=== PATIENT | female | born 1945 | race Caucasian/White ===

== ENCOUNTER 2024-10-26 15:14 | Outpatient (CLI) | payer MEDICARE, SELFPAY ==
--- NOTE | ~2024-10-26 | MM_ITS ---
EXAMINATION: MM screening ever BI w kristian HISTORY: Screening TECHNIQUE: Craniocaudal and mediolateral oblique 3-D tomosynthesis images were obtained and synthetic 2-D images were generated. CAD analysis was submitted and interpreted. COMPARISON: No prior mammogram is available for comparison at this institution. BREAST PARENCHYMAL COMPOSITION: Not dense: There are scattered areas of fibroglandular density. FINDINGS: There are lumpectomy changes in the upper central aspect of the right breast. There is no e vidence of suspicious mass, calcification, or architectural distortion to suggest malignancy in eithe r breast. There has been no suspicious interval change. IMPRESSION: 1. No mammographic evidence of malignancy. 2. Recommend routine screening mammography in one year. BI-RADS Category 1: Negative Reviewed, dictated and finalized at location B. ACLS
== END 2024-10-26 15:15 | disposition home or self-care (01) ==
LOC: ANHIMG 15:16
PROVIDERS: PCP Nurse Practitioner Family; Visit Provider Nurse Practitioner Family
DX: Z12.31 Encounter for screening mammogram for malignant neoplasm of breast (principal)
CPT/HCPCS: 77063; 77067

== ENCOUNTER 2025-04-04 09:58 | Outpatient (CLI) | payer MEDICARE, SELFPAY ==
--- NOTE | ~2025-04-04 | DEXA_ITS ---
Bone Density Report Name: DAVID SALAS Age: 79 Sex: Female Ethnicity: White Date of : 1945 Indication: postmenopausal; screening for osteoporosis; height loss; prior fracture; cancer; Referring Provider: DANNA NASH Study: Bone densitometry was performed. Exam Date: April 04, 2025 Accession number: [id number] Bone Density: Region BMD T-score Z-score Classification AP Spine(L1-L4) 0.724 -2.9 -0.2 Osteoporosis Femoral Neck (Left) 0.615 -2.1 0.3 Osteopenia Total Hip (Left) 0.727 -1.8 0.4 Osteopenia Femoral Neck (Right) 0.667 -1.6 0.7 Osteopenia Total Hip (Right) 0.739 -1.7 0.5 Osteopenia Total Hip Mean 0.733 -1.8 0.5 Osteopenia World Health Organization criteria for BMD impression classify patients as: Normal (T-score at or above -1.0), Osteopenia (T-score between -1.0 and -2.5), or Osteoporosis (T-score at or below -2.5). 10-year Fracture Risk: FRAX not reported because: Some T-score for Spine Total or Hip Total or Femoral Neck at or below -2.5 Prior hip or vertebral fracture Treated for osteoporosis Clinical Information Provided by Patient: Have had a previous hip or vertebral fracture Has had a low trauma fracture Is being treated for osteoporosis Has used the following medications: Fosamax (i.e. alendronate), Vitamin D, Calcium Has the following medical conditions: Cancer Patient maximum height was 63 Menopause Age: 53 Drinks caffeinated beverages Onset of menses at age 11 Number of children 3 Impression: The patient has established osteoporosis, based on the Total Spine T-score and the existence of a prior fracture. The patient has risk factors, including: previous fracture. Discussion: It is important to ask patients whether they are taking their medications and to encourage continued and appropriate compliance with their osteoporosis therapies to reduce fracture risk. It is also important to review their risk factors and encourage appropriate calcium and vitamin D intakes, exercise, fall prevention and other lifestyle measures. Follow-Up: Consider a repeat BMD and Vertebral Fracture Assessment (VFA) exam in 2 years or sooner if medically necessary, to reassess this patient's status. Reported by: ROSAS on 04/04/2025 10:29:00 AM. Reviewed, dictated and finalized at location A.
== END 2025-04-04 09:59 | disposition home or self-care (01) ==
LOC: ANHIMG 09:58
PROVIDERS: PCP Nurse Practitioner Family; Visit Provider Nurse Practitioner Family
DX: M85.89 Other specified disorders of bone density and structure, multiple sites (principal); M81.0 Age-related osteoporosis without current pathological fracture; Z13.820 Encounter for screening for osteoporosis
CPT/HCPCS: 77080

== ENCOUNTER 2025-05-08 12:50 | Outpatient (CLI) | payer MEDICARE, SELFPAY ==
--- NOTE | ~2025-05-08 | US_ITS ---
Pelvic ultrasound. Clinical History: Postmenopausal bleeding Technique: Realtime transabdominal and transvaginal scanning of the pelvis was performed. Color flow Doppler and Doppler spectral analysis were performed. Findings: The uterus is anteverted. The endometrial stripe is somewhat poorly delineated, possibly m easuring up to 9 mm. No focal mass is identified. Neither ovary seen. No adnexal mass seen. There is no evidence of free fluid in the cul de sac. Impression: Somewhat poor delineation of endometrial stripe, which may be mildly thickened at 9 mm. Consider hyst eroscopy and/or pelvic MR to better assess the endometrium. Endometrial neoplasm not completely exclu ded. Reviewed, dictated and finalized at location M. Impression: Somewhat poor delineation of endometrial stripe, which may be mildly thickened at 9 mm. Consider hysteroscopy and/or pelvic MR to better assess the endometriu m. Endometrial neoplasm not completely excluded.
== END 2025-05-08 12:51 | disposition home or self-care (01) ==
LOC: MICIMG 12:52
PROVIDERS: PCP Nurse Practitioner Family; Visit Provider Nurse Practitioner Family
DX: N95.0 Postmenopausal bleeding (principal)
CPT/HCPCS: 76830; 76856

== ENCOUNTER 2025-06-04 01:57 | Day surgery (SDC) | payer MEDICARE, SELFPAY ==
[2025-05-20 14:30] VITALS: BMI 22.6
--- OUTSIDE RECORDS SUMMARY | 2025-06-04 01:59 | XMS_ITS | Continuity of Care Document ---
Author Organization [facility] Address [id number] [place] [id number] Phone Care Team Providers Care Cosmetology Teacher Name Role Phone Ivon GOODSON MD, Garfield Unavailable Unavailable Allergies, Adverse Reactions, Alerts Substance Reaction Status Criticality Penicillins Active No Information Medications Medication Instructions Dosage Effective Dates (start - stop) Status Comments Pred Forte 1 % Eye Drops one drop right eye two times per day - Active Acular LS 0.4 % Eye Drops one drop right eye two times per day - Active Refresh Plus 0.5 % Eye Dropperette one drop right eye four times per day - Active Multiple Vitamin Tab one tablet by mouth daily - Active Imitrex 50 mg Tab PRN - Active Ambien 5 mg Tab PRN - Active Paxil 30 mg Tab one tablet by mouth daily - Active VITAMIN C (unknown strength) one tablet by mouth daily Not Available - Active Fish Oil 340 mg-1,000 mg Cap one tablet by mouth daily - Active MICHELLE-LAC (unknown strength) one tablet by mouth daily Not Available - Active Fosamax 70 mg Tab - Active ALON ASPIRIN (unknown strength) one tablet by mouth daily Not Available - Active Procedures Procedure Date Ophth Serv: Med Exam; Comp Est 08 Ophth Biomet Part Cohernc Intr 08 No Charge Refraction Astigmatism Protocol Ophth Serv: Med Exam; Comp Est 08 Determ Refractive State Postop F/u Visit Incld Global 7 FACILITY FACILITY Discission 2nd Cataract; Laser 07 Ophth Serv: Med Exam; Comp Est 07 Determ Refractive State Ophth Serv: Med Exam; Comp Est 06 Offic/outpt E&m Estab Low-mod 6 Postop F/u Visit Incld Global 5 Offic Cons New/Estab Low Postop F/u Visit Incld Global 5 FACILITY Extracapsular Cataract Remov I 05 Surgery Pre-Payment Anes- Eye; Lens Surg No MD Ophth Biomet Part Cohernc Intr 05 Ophth Serv: Med Exam; Comp New Advance Directives Directive Yes / No Effective Date File Name Resuscitation Not Answered N/A N/A Life Support Not Answered N/A N/A Intubation Not Answered N/A N/A Antibiotics Not Answered N/A N/A IV Fluid Support Not Answered N/A N/A Tube Feed Not Answered N/A N/A Other Directive N/A N/A WARNING:The information contained in this section is historical and is provided for information only and does not constitute a legal document or any assurance that the information is still accurate. Please verify the information with the kohler of the legal document before using it for clinical purposes. Encounters Encounter Description Practice Location Reason(s) For Visit Diagnoses Date Provider Providers Copied on Encounter [facility], [address], [id number], tel:[phone] [facility] No Information 8 Ivon Merrill. [address], [id number], . tel:[phone] Referring Provider: [place], [address], [id number] . tel:[phone] [facility], [address], [id number], tel:[phone] [facility] No Information 8 Lyle Giraldo. [address], [address] [place] [address], . tel:[phone] Referring Provider: [place], [address] [facility], [place], [place], [address] [place] [address] . tel:[phone] [facility], [address] [facility], [place], [address] [place] [address], tel:[phone] [facility] No Information 7 Lyle Giraldo. [address] [facility], [place], [address] [place] [address], . tel:[phone] Referring Provider: Garfield Phillips, [address], [place], [address] [place] [address] . tel:[phone] [facility], [address], [place], [address] [place] [address], tel:[phone] [facility] No Information 7 Ivon Merrill. [address], [place], [address] [place] [address], . tel:[phone] Referring Provider: Garfield Phillips, [address], [place], [address] [place] [address] . tel:[phone] [facility], [address], [place], [address] [place] [address], tel:[phone] [facility] No Information 7 Ivon Merrill. [address], [place], [address] [place] [address], . tel:[phone] Referring Provider: Garfield Phillips, [address], [place], [address] [place] [address] . tel:[phone] [facility], [address], [place], [address] [place] [address], tel:[phone] [facility] No Information 7 Ivon Merrill. [address] [facility], [place], [address] [place] [address], . tel:[phone] Referring Provider: Garfield Phillips, [address] [facility], [place], [address] [place] [address] . tel:[phone] [facility], [address] [facility], [place], [address] [place] [address], tel:[phone] [facility] No Information [address] [place], [address] [place] [address], . tel:[phone] Referring Provider: Do Arndt, [address] [place] [address], [address] [place] [address] . tel:[phone] Offic/outpt E&m Estab Low-mod [facility], [address], [address] [place] [address], tel:[phone] [facility] No Information [address] [place] Do[address] [place] [address], [address] [place] [address], . tel:[phone] Referring Provider: Do Arndt, [id number] [place] [address], [address] [place] [address] . tel:[phone] [facility], [address], [address] [place] [address], tel:[phone] [facility] No Information [address] [place] [address] [place] [address], [address] [place] [address], . tel:[phone] Referring Provider: Do Arndt, [address] [place] [address], [address] [place] [address] . tel:[phone] Offic Cons New/Estab Low Prachi BELTRÁN, [address], [address], [place], [place], [id number], tel:[phone] Prachi BELTRÁN No Information Sep-1 3-[address] [facility], [address], [place], [place], [id number], tel:[phone] [facility] No Information Sep-0 6-[address] [facility], [address], [place], [place], [id number], tel:[phone] [facility] No Information Jun-3 [address] [facility], [address], [place], [place], [id number], tel:[phone] [facility] No Information Jun-3 [address] [facility], [address], [place], [place], [id number], tel:[phone] [facility] No Information Jun-3 0-[address] [facility], [address], [place], [place], [id number], tel:[phone] [facility] No Information Jun-3 0-200 5 Sukhjinder Carver. [address], [place], [facility], [place]. tel:[phone] [facility], [address], [place], [place], [id number], tel:[phone] [facility] No Information Jun-3 0-[address] [facility], [address] [facility] , [place], [place], [id number], tel:[phone] [facility] No Information Jun-1 2-200 5 No Information Family History Family Member Type Diagnosis Age At Onset Mother Problem (finding) Heart Disease Father Problem (finding) Heart Disease Maternal Grandparent Problem (finding) Cancer Paternal Grandparent Problem (finding) Emphysema/Strok e Sisters/Brothers Problem (finding) Cancer Payers Payer name Insurance type Covered republican ID Authoriza tion(s) No Information Social History Type Description Quantity Date Captured Comments Alcohol Use Details Unknown Caffeine Use Details Unknown Tobacco Use Status Smoking Status No Information Sex Female Chief Complaint And Reason For Visit No Information Reason For Referral Reason For Referral No Information History Of Present Illness Encounter Date Complaint History Of Prese nt Illness No Information Functional Status Date Functional Assessmen t No Information Instructions Date Instruction Additional Infor mation No Information Assessments Type Assessment Date No Information Patient Care Teams Name Effective Dates (start - stop) Status Members No Information
[2025-06-04 11:26] VITALS: BP 138/77; PULSE 100; RESP 18; TEMP 36.4; O2SAT 99; BMI 22.8
[2025-06-04] MEDS: LACTATED RINGERS 1,000 ML 150 ML IV CONT (11:38)
--- NOTE | 2025-06-04 11:46 | WPDANESEPPF ---
Anes - Initial Pre Proc Eval Procedure: Operation Date: 06/04/25 13:00 Proposed Procedures p Colonoscopy - Saqib Wood MD Date/Time: 06/04/25 11:46 Surgeon: Saqib Wood MD Pre Op Diagnosis: Full incontinence of feces Patient Data Age: 79 Gender: F Height: 1.55 m Weight: 55 kg Last Vital Signs Temp 97.5 F L 06/04/25 11:26 Pulse 100 06/04/25 11:26 Resp 18 06/04/25 11:26 BP 138/77 06/04/25 11:26 Pulse Ox 99 06/04/25 11:26 O2 Del Method Room Air 06/04/25 11:26 Allergies Allergy/AdvReac Type Severity Reaction Status Date / Time Penicillins Allergy Unknown Unknown Verified 06/04/25 11:25 Home Medications ?Medication ?Instructions ?Recorded ?Confirmed ?Type ascorbic acid (vitamin C) 1,000 mg 1 g PO DAILY 08/02/24 06/04/25 History tablet cholecalciferol (vitamin D3) 250 250 mcg PO DAILY 08/02/24 06/04/25 History mcg (10,000 unit) capsule vitamin B complex (Complex B-100 1 tablet PO DAILY 08/02/24 06/04/25 History tablet,extended release) rosuvastatin 10 mg tablet 10 mg PO DAILY #90 tabs 02/07/25 06/04/25 Rx trazodone 50 mg tablet 75 mg (1.5 x 50 mg) PO QHS 90 days 02/07/25 06/04/25 Rx #135 tabs venlafaxine 150 mg 150 mg PO DAILY #90 caps 02/07/25 06/04/25 Rx capsule,extended release 24 hr nitrofurantoin macrocrystal 100 mg 100 mg PO Q12H 05/02/25 06/04/25 History capsule Patient hx anesthesia problems: none Family hx anesthesia problems: none Results Review: All pre-operative results and documents have been reviewed as part of the pre-operative evaluation. [facility] Past Medical History Medical History Screening for breast cancer Screening for osteoporosis Complication of urinary electronic stimulator device Pre-diabetes Osteoporosis COPD (chronic obstructive pulmonary disease) Cancer insut 2 right breast Arthritis Anxiety Surgical History Surgical History History of lumpectomy Right side Social History Social History Smoking status: Former smoker Alcohol intake: never Substance use: never Do You Feel Safe in your Home?: Yes Lack of Transportation: No Lack of Food: Never True Current Housing: I Have Housing Concerned About Future Housing: No Difficulty Paying Gas/Electric Bills: No Difficulty Paying for Meds: No Currently Unemployed: No Education: Trade/Vocational Certificate Difficulty w/ Childcare or Family Care: No Living arrangements: skilled nursing [facility] Occupation/Education: retired Gender identity (if verbalized by the patient): Female Sexual Orientation (if Verbalized by the Patient): Straight or Heterosexual Spiritual care concerns: No Agree to blood products: Yes Anes - Eval Final PreProcedure Day of Procedure 06/04/25 11:46 Patient weight: normal Results Review: All pre-operative results and documents have been reviewed as part of the pre-operative evaluation. Informed Consent: The patient's anesthetic plan and its attendant risks and benefits were discussed with the patient/family/POA. Questions were solicited and answers provided to the satisfaction of the patient/family/POA.
--- NOTE | 2025-06-04 12:17 | PM.HPGS ---
History of Present Illness History of Present Illness Consent: Risks, benefits, and alternatives have been discussed and questions answered. Patient agrees to proceed with procedure. Chief complaint: Full incontinence of feces Narrative: Marry Epstein is a 79 year old female with last colonoscopy 2020 because sister had colon cancer, also incontinence treated with botox injection, also she will get soon hysterectomy because bleeding. Review of Systems Review of Systems: All systems reviewed & are unremarkable except as noted in HPI and below PMFSH Past Medical History Medical History Screening for breast cancer Screening for osteoporosis Complication of urinary electronic stimulator device Pre-diabetes Osteoporosis COPD (chronic obstructive pulmonary disease) Cancer insut 2 right breast Arthritis Anxiety Surgical History Surgical History History of lumpectomy Right side Social History Social History Smoking status: Former smoker Alcohol intake: never Substance use: never Do You Feel Safe in your Home?: Yes Lack of Transportation: No Lack of Food: Never True Current Housing: I Have Housing Concerned About Future Housing: No Difficulty Paying Gas/Electric Bills: No Difficulty Paying for Meds: No Currently Unemployed: No Education: Trade/Vocational Certificate Difficulty w/ Childcare or Family Care: No Living arrangements[place] Occupation/Education: retired Gender identity (if verbalized by the patient): Female Sexual Orientation (if Verbalized by the Patient): Straight or Heterosexual Spiritual care concerns: No Agree to blood products: Yes Meds Home Medications and Allergies Home Medications ?Medication ?Instructions ?Recorded ?Confirmed ?Type ascorbic acid (vitamin C) 1,000 mg 1 g PO DAILY 08/02/24 06/04/25 History tablet cholecalciferol (vitamin D3) 250 250 mcg PO DAILY 08/02/24 06/04/25 History mcg (10,000 unit) capsule vitamin B complex (Complex B-100 1 tablet PO DAILY 08/02/24 06/04/25 History tablet,extended release) rosuvastatin 10 mg tablet 10 mg PO DAILY #90 tabs 02/07/25 06/04/25 Rx trazodone 50 mg tablet 75 mg (1.5 x 50 mg) PO QHS 90 days 02/07/25 06/04/25 Rx #135 tabs venlafaxine 150 mg 150 mg PO DAILY #90 caps 02/07/25 06/04/25 Rx capsule,extended release 24 hr nitrofurantoin macrocrystal 100 mg 100 mg PO Q12H 05/02/25 06/04/25 History capsule Allergies Allergy/AdvReac Type Severity Reaction Status Date / Time Penicillins Allergy Unknown Unknown Verified 06/04/25 11:25 Vital Signs Vital Signs - 24 hr 06/04/25 11:26 Temperature 97.5 F L Pulse Rate 100 Respiratory Rate 18 Blood Pressure 138/77 Pulse Oximetry 99 Oxygen Delivery Room Air Exam Const: General: comfortable and no acute distress HENMT: Face/Nose/Sinus: Normal nares present Eyes: General: appearance normal, both eyes and all related structures Neck: Neck: no JVD Resp: Auscultation: clear to auscultation bilaterally Cardio: Rate: regular rate Rhythm: regular rhythm GI: Inspection: non-distended GI Palp: Yes Soft to palpation Skin: General skin exam: normal color Neuro: Speech: normal speech Extrem: General: normal to inspection Psych: Mental Status: mental status grossly normal Assessment and Plan Assessment and plan (1) Family history of colon cancer: Code(s): Z80.0 - Family history of malignant neoplasm of digestive organs Status: Acute Assessment and Plan: colonoscopy (2) Fecal incontinence: Qualifiers: Fecal incontinence type: fecal smearing Qualified Code(s): R15.1 - Fecal smearing Code(s): R15.9 - Full incontinence of feces Status: Acute Assessment and Plan: treated with botox injection
--- NOTE | 2025-06-04 12:31 | S_PTH ---
PATIENT: Marry Epstein LOC: [facility] Lr#:[id number] AGE/SX: 79/F ROOM: RE06/04/[address]: Saqib Wood MD : 1945 BED: DIS: 06/04/2025 SPEC #: [id number] RECD: 06/04/25 13:39 STATUS: ILAN REEmma #: [id number] VICK: 06/04/25 12:[address]: Saqib Wood DEPT: [facility] Surgical RECD BY: Marcelo Belle ENTERED: 06/04/25 13:39 SP TYPE: Surgical OTHR DR: Jessica Johnson APRN Tissues: A - Colon Polypectomy Procedures: Hematoxylin and Eosin Stain Gross and Microscopic Level 4
[2025-06-04 12:34] VITALS: BP 127/74; PULSE 96; RESP 20; O2SAT 99
[2025-06-04 12:44] VITALS: BP 131/94; PULSE 85; RESP 20; O2SAT 99
[2025-06-04 12:54] VITALS: BP 146/80; PULSE 90; RESP 20; O2SAT 99
== END 2025-06-04 13:05 | disposition home or self-care (01) ==
PROVIDERS: PCP Nurse Practitioner Family; Referring Provider Nurse Practitioner Family; Visit Provider Internal Medicine Gastroenterology
PROC: 0DJD8ZZ Inspection of Lower Intestinal Tract, Via Natural or Artificial Opening Endoscopic (ICD-10-PCS; CPT 45378; principal; 2025-06-04 13:00)
DX: K63.5 Polyp of colon (principal); R73.03 Prediabetes; M81.0 Age-related osteoporosis without current pathological fracture; J44.9 Chronic obstructive pulmonary disease, unspecified; F41.9 Anxiety disorder, unspecified; M19.90 Unspecified osteoarthritis, unspecified site; Z98.890 Other specified postprocedural states; Z96.82 Presence of neurostimulator; Z87.891 Personal history of nicotine dependence; Z85.3 Personal history of malignant neoplasm of breast; Z80.0 Family history of malignant neoplasm of digestive organs
CPT/HCPCS: 45380; 88305; J2003; J2704; J7120